=== PATIENT | female | born 1945 | race Caucasian/White ===

== ENCOUNTER 2018-01-05 18:36 | Observation (INO) | payer MEDICARE, SELFPAY ==
[2018-01-05 18:52] VITALS: BP 185/78; PULSE 86; RESP 16; TEMP 36.6; O2SAT 100; BMI 38.2
[2018-01-05 19:30] VITALS: BP 185/78; PULSE 86; RESP 16; TEMP 36.6; O2SAT 100; BMI 38.2
--- NOTE | 2018-01-05 19:37 | ED.ABDPAIN ---
HPI - Abdominal Pain General Chief Complaint: Abdominal Pain Stated Complaint: ABD PAIN Time Seen by Provider: 01/05/18 19:27 Source: patient and family ( and daughters) Mode of arrival: ambulatory Limitations: no limitations History of Present Illness HPI narrative: This is a 72-year-old female who comes to the emergency department with complaint of abdominal pain. Patient states she has had these symptoms on and off for 3 years. She gets pain on the right side of her abdomen. It is usually sort of in the middle but in the front. She states the 1st episode happened 3 years ago. She has had several episodes since. It is typically waxing and waning intensity and then resolved. She nor has normally had noticed it at night. She had a recurrence starting on Tuesday it continued to be intermittent and then starting on Tuesday became constant. It has been slowly increasing in intensity as well. She states movement or riding in a car and hitting a bump make it worse. She denies anything other than lying still. She has had back issues in the past and had injections with steroids but this feels different and is a different location. She describes that as her lower back. Patient has not had any fevers, nausea or vomiting, no diarrhea or constipation. He denies any urinary symptoms. Patient defers any pain medication. Related Data Home Medications Medication Instructions Recorded Confirmed No Known Home Medications 01/06/18 01/06/18 Allergies Allergy/AdvReac Type Severity Reaction Status Date / Time No Known Drug Allergies Allergy Verified 01/05/18 18:58 Review of Systems Review of Systems All systems reviewed & are unremarkable except as noted in HPI and below Constitutional Denies chills and Denies fever(s) Gastrointestinal Gastrointestinal: Reports abdominal pain, Denies change in bowel habits, Denies constipation, Denies diarrhea, Denies nausea and Denies vomiting Genitourinary Denies hematuria, Denies flank pain, Denies urinary incontinence, Denies urinary urgency and Denies other (flank pain) Musculoskeletal Denies back pain and Denies limited range of motion Integumentary/Breasts Denies rash [facility] Medical History Back pain (Acute) Social History household members: spouse Smoking Status: Never smoker alcohol intake: never substance use type: does not use Exam Narrative Exam Narrative: GENERAL: Alert and oriented x three, well-nourished, well-appearing female in mild distress. HEENT: Head normocephalic, atraumatic, EOMI, pupils reactive, face symmetric, moist mucous membranes NECK: Supple, full range of motion CARDIOVASCULAR: Regular rate and rhythm without murmurs, rubs or gallops. RESPIRATORY: Breath sounds equal bilaterally, no wheezes rales or rhonchi. ABDOMEN: Soft, moderate right lower quadrant tenderness. Patient has some right upper quadrant tenderness that is mild. Normoactive bowel sounds all 4 quadrants. No guarding or rebound, rigidity, no mass : No CVA tenderness EXTREMITIES: Normal range of motion, no clubbing or edema. Neurovascularly intact NEUROLOGICAL: Cranial nerves II through XII grossly intact. Moving all extremities SKIN: Warm, dry, no petechiae, no rashes or lesions. Initial Vital Signs Initial Vital Signs: Vital Signs Temperature 98 F 01/05/18 18:52 Pulse Rate 86 01/05/18 18:52 Respiratory Rate 16 01/05/18 18:52 Blood Pressure 185/78 H 01/05/18 18:52 Pulse Oximetry 100 01/05/18 18:52 Course Orders Ordered: ED Orders 01/05/18 19:30 Complete Blood Count AUTO DIFF Stat Comprehensive Metabolic Panel Stat Lipase Stat 01/05/18 19:48 CT abdomen pelvis w con Stat Ciprofloxacin (Cipro) 400 mg in 200 mls @ 200 mls/hr IV NOW BRI Last Infusion: 01/06/18 00:40 Dose: 0 mls/hr Admin: 01/05/18 23:24 Dose: 200 mls/hr Sodium Chloride (Normal Saline 0.9% Flush) 10 ml IV BID BRI Sodium Chloride (Normal Saline 0.9% Flush) 10 ml IV PRN PRN PRN Reason: Flush Discontinued Medications Sodium Chloride (Normal Saline 0.9%) 1,000 mls @ 1,000 mls/hr IV BOLUS ONE Stop: 01/05/18 20:47 Last Infusion: 01/05/18 21:19 Dose: 1,000 mls/hr Admin: 01/05/18 19:50 Dose: 1,000 mls/hr Metronidazole (Flagyl) 500 mg in 100 mls @ 100 mls/hr IV NOW ONE Stop: 01/05/18 22:49 Last Infusion: 01/05/18 22:19 Dose: 100 mls/hr Admin: 01/05/18 22:00 Dose: 100 mls/hr Reevaluation(s) Reevaluation #1: Patient is doing same. Discussed lab and imaging findings. Time: 21:40 Consultations Consultation #1: Dr. Ott I discussed patient's physical exam findings, HPI as well as imaging and lab work. She does have some straining although no other clear signs of appendicitis. She is tender in the right lower quadrant but not exquisitely so. Her symptoms have been waxing and waning for a long period of time. He recommends to place patient on IV antibiotics and evaluate after observation overnight. We did discuss that if patient does not wish to spend the night some he would recommend oral antibiotics such as Flagyl and fluoroquinolone, Cipro or Levaquin. Time: 21:41 Vital Signs - 8 hr 01/05/18 22:20 01/05/18 22:37 01/05/18 23:40 Temperature 97.1 F L 98.5 F Pulse Rate 71 76 Respiratory Rate 15 18 Blood Pressure 151/82 H 158/61 H Pulse Oximetry 96 158 H 95 01/06/18 02:30 Temperature 97.9 F Pulse Rate 78 Respiratory Rate 18 Blood Pressure 145/68 H Pulse Oximetry 94 MDM - Abdominal Pain Lab Data Attestation: I reviewed the patient's lab results. Result diagrams: 01/05/18 19:30 01/05/18 19:30 Lab Results 01/05/18 01/05/18 Range/Units 19:30 19:30 WBC 10.0 (4.5-11.0) X10^3/uL RBC 4.60 (4.0-5.2) X10^6/uL Hgb 14.5 (12.0-16.0) g/dL Hct 43.1 (36-46) % MCV 93.7 (80-100) fL MCH 31.5 (26-34) PG MCHC 33.6 (30-36) % RDW 12.8 (11.6-14.8) % Plt Count 292 (150-400) X10^3/uL Neut % (Auto) 59.7 (50-75) % Lymph % (Auto) 27.5 (25-40) % [place] % (Auto) 10.8 (3-14) % Eos % (Auto) 1.3 L (2-4) % Baso % (Auto) 0.7 (0-2) % Neut # (Auto) 6000 H (1428-1753) /uL Sodium 143 (137-145) mmol/L Potassium 4.5 (3.4-5.1) mmol/L Chloride 106 (98-107) mmol/L Carbon Dioxide 27 (22-32) mmol/L BUN 12 (7-17) mg/dL Creatinine 0.70 (0.52-1.04) mg/dL Estimated GFR > 60.0 (>60) mL/min BUN/Creatinine Ratio 17.1 (6-22) Glucose 119 H (80-110) mg/dL Calcium 8.7 (8.4-10.2) mg/dL Total Bilirubin 1.5 H (0.2-1.3) mg/dL AST 30 (14-36) IU/L ALT 28 (9-52) IU/L Alkaline Phosphatase 65 (38-126) U/L Total Protein 7.3 (6.3-8.2) g/dL Albumin 4.1 (3.5-5.0) g/dL Globulin 3.2 (1.7-4.1) g/dL Albumin/Globulin Ratio 1.3 (1.0-2.8) Lipase 60 (23-300) U/L Point of care testing: Urine Dip Bedside Urine Glucose Negative Bedside Urine Bilirubin - Negative Bedside Urine Ketone - Negative Urine Specific [place] 1.015 Bedside Urine Occult Blood - Negative Bedside Urine pH 6.0 Bedside Urine Protein - Negative Bedside Urine Urobilinogen - Negative Bedside Urine Nitrite - Negative Bedside Urine Leukocytes - Negative Esterase Imaging Data CT scan - abdomen: Radiologist's impression: Appendix not clearly visualized, there is stranding adjacent to the tip of the cecum and appendicitis cannot be excluded. Colonic diverticulosis without evidence of diverticulitis. 4.4 cm left adnexal cyst. Recommend nonemergent gynecology cool consult partial calcified 8 mm utilize nodule in hepatic steatosis Discharge Plan Departure Patient Disposition: Admitted as Observation Clinical Impression: Abdominal pain Discharge Date/Time: 01/05/18 22:20 Interventions: ED Discharge Assessment Last Done: 01/05/18 22:20 Admit Date/Time: 01/05/18 22:11 Admit Provider: Farhad Ott
--- NOTE | 2018-01-05 19:48 | DI.CT.S_ITS ---
PROCEDURE: CT ABDOMEN PELVIS W CON INDICATIONS: Right lower quadrant pain, on/off for long time, worse and constant x 5 days. TECHNIQUE: After the administration of intravenous contrast, 5 mm thick sections acquired from the diaphragm to the symphysis. 5 mm coronal and sagittal reformats were acquired. For radiation dose reduction, the following was used: automated exposure control, adjustment of mA and/or kV according to patient size. COMPARISON: None. FINDINGS: Image quality: Excellent. ABDOMEN: Lung bases: Atelectasis noted in the dependent portion the lung bases. 8mm partially calcified, partially visualized nodule noted in the mesial aspect of the right lung base. Heart size is normal. Solid organs: Liver is normal in size and enhancement. Mild, diffuse fatty infiltration of the liver. Gallbladder is within normal limits. Biliary system is non dilated. Pancreas enhances normally. Spleen is normal in size and enhancement. Punctate calcifications in the spleen compatible sequela prior granulomatous disease. No adrenal nodules. Kidneys demonstrate normal size and enhancement, without hydronephrosis. 2.4 cm right renal cyst. Peritoneum and bowel: Small hiatal hernia. Bowel loops demonstrate normal wall thickness and caliber. Multiple diverticuli noted in the colon without evidence diverticulitis. No free fluid or air. The appendix is not definitely visualized. Mild strandy noted adjacent to the tip of the cecum. Nodes and vessels: No retroperitoneal or mesenteric adenopathy by size criteria. Aorta and inferior vena cava are normal in size. Miscellaneous: Small fat containing umbilical hernia. PELVIS: Genitourinary: Bladder wall thickness is normal. 4.4 cm in maximum diameter left adnexal cyst is noted. Miscellaneous: No inguinal hernias or adenopathy. Bones: No suspicious bony lesions. No vertebral body compression fractures. Spine degenerative disease and facet arthropathy noted. IMPRESSION: 1. Appendix not definitely visualized. There is stranding adjacent to the tip of the cecum and appendicitis cannot be excluded. 2. Colonic diverticulosis without evidence of diverticulitis. 3. 4.4 cm left adnexal cyst. Recommend nonemergent gynecology consultation. 4. Partially calcified, 8mm, partially visualized nodule in the right lower lobe. Recommend dedicated nonemergent CT scan of the chest for definitive characterization. 5. Hepatic steatosis. Dictated by: Jolene Hernandez MD, PhD on 01/05/2018 at 20:53 Approved by: Jolene Hernandez MD, PhD on 01/05/2018 at 21:01
[2018-01-05] MEDS: SODIUM CHLORIDE 0.9% 1,000 ML 1000 ML IV (19:50)
[2018-01-05 19:54] LABS: Add Manual Diff / Slide Review NO; Basophils Percent Auto 0.7 % (0-2); Eosinophils Percent Auto 1.3 % (2-4); Hematocrit 43.1 % (36-46); Hemoglobin 14.5 g/dL (12.0-16.0); Lymphocytes Percent Auto 27.5 % (25-40); Mean Corpuscular HGB Conc 33.6 % (30-36); Mean Corpuscular Hemoglobin 31.5 PG (26-34); Mean Corpuscular Volume 93.7 fL (80-100); Monocytes Percent Auto 10.8 % (3-14); Neutrophils Absolute Auto 6000 /uL (3000-5900); Neutrophils Percent Auto 59.7 % (50-75); Platelet Count 292 X10^3/uL (150-400); Red Cell Distribution Width 12.8 % (11.6-14.8)
[2018-01-05 19:59] LABS: Alanine Aminotransferase 28 IU/L (9-52); Albumin 4.1 g/dL (3.5-5.0); Albumin Globulin Ratio 1.3 (1.0-2.8); Alkaline Phosphatase 65 U/L (38-126); Aspartate Aminotransferase 30 IU/L (14-36); BUN Creatinine Ratio 17.1 (6-22); Bilirubin Total 1.5 mg/dL (0.2-1.3); Blood Urea Nitrogen 12 mg/dL (7-17); Calcium 8.7 mg/dL (8.4-10.2); Carbon Dioxide 27 mmol/L (22-32); Chloride 106 mmol/L (98-107); Estimated Glomerular Filt Rate > 60.0 mL/min (>60); Globulin 3.2 g/dL (1.7-4.1); Glucose 119 mg/dL (80-110); Lipase 60 U/L (23-300); Sodium 143 mmol/L (137-145); Total Protein 7.3 g/dL (6.3-8.2)
[2018-01-05 20:00] LABS: HEMOLYSIS 84 (0-50); Potassium 4.5 mmol/L (3.4-5.1)
[2018-01-05] MEDS: metroNIDAZOLE 500 MG/100 ML PIGGYBACK 100 MG IV (22:00)
[2018-01-05 22:16] VITALS: BMI 38.2
[2018-01-05 22:20] VITALS: BP 151/82; PULSE 71; RESP 15; TEMP 36.2; O2SAT 96
[2018-01-05 22:37] VITALS: BP 158/61; PULSE 76; RESP 18; TEMP 36.9; O2SAT 158
[2018-01-05] MEDS: CIPROFLOXACIN 400 MG/200 ML PIGGYBACK 200 MG IV (23:24)
[2018-01-05 23:40] VITALS: O2SAT 95
--- NOTE | 2018-01-06 00:54 | PC.NURSE ---
Addendum entered by Margareth Perales R.N. 01/06/18 06:06: Slept most of shift. Up to bathroom x 1 to void and urine sent to lab as per ER MD order. Still having tenderness but declines need for pain medication. Original Note: Patient is alert and oriented. Breath sounds CTA with RA sat of 95%. HRR. Denies nausea. BT present but denies flatus or BM yesterday/today. Abdomen is soft but tender in right quads with severity of 4/10 but states it is tolerable. Independent with bed mobility. Fall risk score is low; patient reminded to call for assistance to bathroom due to complaint of generalized weakness. On contact isolation as patient states she has had thread worms x 6 months.
[2018-01-06 02:30] VITALS: BP 145/68; PULSE 78; RESP 18; TEMP 36.6; O2SAT 94
[2018-01-06 08:50] VITALS: BP 152/72; PULSE 70; RESP 20; TEMP 36.8; O2SAT 93
[2018-01-06] MEDS: DEXTROSE 5%-0.45% NS 1,000 ML 150 ML IV (09:16)
[2018-01-06] MEDS: BISACODYL 10 MG SUPP PR (09:16)
[2018-01-06] MEDS: SODIUM CHLORIDE 0.9% FLUSH 10 ML IV (10:07)
--- NOTE | 2018-01-06 10:35 | PC.NURSE ---
Marianela states she has had intestine worms for around 6 months duration. She can feel them moving around her rectum especially at night. She states they are white and have a thread-like appearance. She describes both a male and female worm anatomy. Marianela was able to have a small formed BM after suppository. Stool samples obtained for O and P, and, separately, per Dr. Ott, for pathology identification, sent to lab. This nurse could visually see multiple objects in stool that appeared about the thickness of a pine needle, and about 1 long. Marianela is tolerating clear liquid diet. No nausea. She has abdominal pain which waxes and wanes, mostly on right side, and mostly when she moves about.
[2018-01-06 13:05] VITALS: BP 144/64; PULSE 66; RESP 20; TEMP 36.9; O2SAT 95
--- NOTE | 2018-01-06 13:09 | CM.DANOTE ---
Addendum entered by Ying Berry LPN 01/06/18 13:17: Pt is a 72 year old female who admitted last night to care of the general surgical team. Dr. Ott has seen her today/his note is not yet available. PCP: Dr. Proctor Payer: Medicare and [employer] Full dx and POC are in process. Pt is on contact precautions as she reports interstinal work infestation x 6 months. Pt appears uncomfortable and anxious, says she does not know yet what the doctor is planning. P: DCP team to follow prn as POC unfolds to assist with any d/c needs that may arise. Original Note: Discharge Planning/Care Management DCP: assessment: Case received, EMR reviewed and met with pt. Introduced self and role. CM Discharge Assessment Start: 01/06/18 13:07 Freq: Status: Active Protocol: Document 01/06/18 13:08 ITV (Rec: 01/06/18 13:09 [email or web address] [email or web address]) Discharge Planning Assessment Advance Directives? Yes History Provided By Patient Prior Living Arrangements House Household Members spouse Document 01/06/18 13:08 ITV (Rec: 01/06/18 13:09 [email or web address] [email or web address]) Discharge Planning Assessment History Provided By Patient Medical Record Prior Living Arrangements House Comment lives on [facility] Household Members spouse Independent with ADL's Yes Is patient alert and oriented? Yes Whiteboard Updated in Patient Room with Yes name and ext. # of [employer] Review Status In Process Next Review Type Continued Stay Review
[2018-01-06 15:05] LABS: Add Manual Diff / Slide Review NO; Basophils Percent Auto 0.4 % (0-2); Eosinophils Percent Auto 1.2 % (2-4); Hematocrit 40.6 % (36-46); Hemoglobin 13.7 g/dL (12.0-16.0); Lymphocytes Percent Auto 22.9 % (25-40); Mean Corpuscular HGB Conc 33.8 % (30-36); Mean Corpuscular Hemoglobin 31.8 PG (26-34); Mean Corpuscular Volume 93.9 fL (80-100); Monocytes Percent Auto 11.9 % (3-14); Neutrophils Absolute Auto 4900 /uL (3000-5900); Neutrophils Percent Auto 63.6 % (50-75); Platelet Count 251 X10^3/uL (150-400); Red Blood Cell Count 4.33 X10^6/uL (4.0-5.2); Red Cell Distribution Width 12.5 % (11.6-14.8); White Blood Cell Count 7.7 X10^3/uL (4.5-11.0)
--- NOTE | 2018-01-06 16:37 | PM.HP.1 ---
History of Present Illness Date Patient Seen: 01/06/18 Time Patient Seen: 08:31 Chief complaint: ABD PAIN Narrative: The patient is a woman with a 4 5 day history of right lower quadrant pain. Pain occurred when she changed positions. When she was laying still or standing it was not painful. She has had no nausea vomiting diarrhea or constipation. She has had intermittent pain similar to this over the last 3 years. This is the 1st time it did not go away. Of note, she failed to inform the emergency room doctor that she has been seeing worms in her stool for at least the past 8 months. For reasons that are unclear she really has not sought care nor received any evaluation or treatment. She feels like there is activity around her anus at night, as though something is crawling around her anus. She has had no fever chills. She also has a history of low back problems. She has had a cortisone injection in the past. Patient History Medical History Back pain (Acute) Family & Social History Family History: Reviewed 01/06/18 by Farhad Ott MD Social History: household members spouse Prior Living Arrangements House Safety & Behavioral: Feels Safe in Current Yes Environment Been Physically Hurt or No Threatened By a Person Suicidal Ideation Description None Suicide Plan Description No Plan Tobacco & Substance use: Smoking Status Never smoker alcohol intake never alcohol intake frequency 0-2 drinks per day Substance Use Type does not use Meds Home Medications Medication Instructions Recorded Confirmed Type albendazole 400 mg PO DAILY #6 tab 01/06/18 Rx Allergies Allergy/AdvReac Type Severity Reaction Status Date / Time No Known Drug Allergies Allergy Verified 01/05/18 18:58 Review of Systems Review of Systems Patient denies fever chills night sweats. No cough cold or asthma. No double vision pain arise. No tooth aches trouble swallowing. No problems with her heart heart attacks heart murmurs. No black or bloody bowel movements. She has never had a colonoscopy. No seizures or blackouts. No blood in her urine kidney stones or dysuria. No problems with her thyroid pancreas she is aware of. She does have some joint pain in her knees and ankles but has never had any operations. Exam Vital Signs (past 8 hours): - 01/06/18 08:50 01/06/18 13:05 Temperature 98.3 F 98.4 F Pulse Rate 70 66 Respiratory Rate 20 20 Blood Pressure 152/72 H 144/64 H Pulse Oximetry 93 95 Oxygen Delivery Method Room Air Narrative Exam Narrative: Obese woman in no apparent distress. She smiles in length comfortably. Her eyes are nonicteric. Pupils equal round reactive to light. Conjunctivae are pink. Ears without lesion. Oral mucosa is pink and moist. No open lesions appreciated. No splits ellipse. There are no nodes in the neck or supraclavicular areas. Trachea is midline mobile. Thyroid is not enlarged. Lungs are clear to auscultation without rales or rhonchi. Heart regular rate and rhythm without murmur gallop. No bruit in the neck. Her abdomen is protuberant soft. There is slight tenderness in the right lower quadrant but it is not reproducible. There is no guarding and no rebound. There is no enlargement of her liver spleen. I see no ventral hernias. Her extremities are without cyanosis clubbing or edema. She has decreased hearing in her lower extremities but she shaves her legs. 2+ dorsalis pedis pulses are noted. She is alert and oriented x3. Speech rate and content are appropriate. Affect is appropriate. Objective Imaging CT scan - abdomen: My impression: Reviewed report. There is some very slight stranding near the end of the cecum. I do not see an appendix. No thickening of the bowel in that area. Small bowel was normal. INC any other worrisome findings. The report does mention a possible lung lesion. Labs Result Diagrams: 01/06/18 14:58 01/05/18 19:30 Labs: Laboratory Results - last 24 hr 01/05/18 01/05/18 01/06/18 19:30 19:30 14:58 WBC 10.0 7.7 RBC 4.60 4.33 Hgb 14.5 13.7 Hct 43.1 40.6 MCV 93.7 93.9 MCH 31.5 31.8 MCHC 33.6 33.8 RDW 12.8 12.5 Plt Count 292 251 Neut % (Auto) 59.7 63.6 Lymph % (Auto) 27.5 22.9 L [place] % (Auto) 10.8 11.9 Eos % (Auto) 1.3 L 1.2 L Baso % (Auto) 0.7 0.4 Neut # (Auto) 6000 H 4900 Sodium 143 Potassium 4.5 Chloride 106 Carbon Dioxide 27 BUN 12 Creatinine 0.70 Estimated GFR > 60.0 BUN/Creatinine Ratio 17.1 Glucose 119 H Calcium 8.7 Total Bilirubin 1.5 H AST 30 ALT 28 Alkaline Phosphatase 65 Total Protein 7.3 Albumin 4.1 Globulin 3.2 Albumin/Globulin Ratio 1.3 Lipase 60 Assessment & Plan Plan: Assessment/Plan Narrative: Patient with right lower quadrant pain that is completely atypical of acute appendicitis. CT scan suggests that there may be some inflammation in the pericecal fat. However at 4 days into acute appendicitis I would expect to see more than the minimal amount of stranding IC. In addition she has had no change in her bowel function, has no fever, and does not have an elevated white count or left shift. All of those things mitigate away from appendicitis. In addition her exam is relatively benign. I am very concerned with a history of seeing worms. This certainly can cause abdominal symptoms. She is not really having diarrhea but a stool sample was reported to have small white filaments and at suggestive of worms. Sample was submitted to the [facility]. I am not sure that we need to keep the patient hospitalized any further. Her over site of reporting to the emergency room physician is how she was admitted for observation when she might have been sent out with a prescription. In any event I do not believe she has a surgical belly. I have sent a prescription for albendazole to the local [facility] pharmacy at her request. We will treat empirically and await the results from the [facility]. She should follow-up with her family doctor on or CT us should her symptoms persist or her worms persist. She may also need to have her family treated. I spoke to her at length about good hygiene to avoid cross family transmission. Quality VTE Deep Vein Thrombosis/Pulmonary Embolism Present on Admission: No
--- NOTE | 2018-01-06 18:01 | PM.DS.1 ---
History of Present Illness Chief complaint: ABD PAIN Narrative: The patient is a woman with a 4 5 day history of right lower quadrant pain. Pain occurred when she changed positions. When she was laying still or standing it was not painful. She has had no nausea vomiting diarrhea or constipation. She has had intermittent pain similar to this over the last 3 years. This is the 1st time it did not go away. Of note, she failed to inform the emergency room doctor that she has been seeing worms in her stool for at least the past 8 months. For reasons that are unclear she really has not sought care nor received any evaluation or treatment. She feels like there is activity around her anus at night, as though something is crawling around her anus. She has had no fever chills. She also has a history of low back problems. She has had a cortisone injection in the past. Discharge Providers Date of admission: 01/05/18 22:11 Primary care physician: Parker Proctor MD Discharge provider: Farhad Ott MD Discharge Date: 01/06/18 Summary Discharge Diagnosis: Right lower quadrant pain cause unclear acute with history of chronic pain. 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 Per patient Obesity Hospital Course: Patient was observed and her weight count repeated. It was never elevated. She never had a fever. Tenderness was minimal despite a 4 day history. She was not felt to require any surgical intervention. There was concerned that her symptoms might be related to her warm infestation. She will be treated with albendazole 400 mg daily for 3 days. This covers many of the worm parasites. Will await the state findings at the of will consider treatment of the entire family. Status at Discharge Cognitive/behavioral status at discharge: Pre-admission Functional status at discharge: independent ambulation Overall status at discharge: patient is back to baseline Time Spent with Patient Less than 30 minutes Exam Vital Signs (past 8 hours): - 01/06/18 13:05 Temperature 98.4 F Pulse Rate 66 Respiratory Rate 20 Blood Pressure 144/64 H Pulse Oximetry 95 Oxygen Delivery Method Room Air Objective Labs Result Diagrams: 01/06/18 14:58 01/05/18 19:30 Labs: Laboratory Results - last 24 hr 01/05/18 01/05/18 01/06/18 19:30 19:30 14:58 WBC 10.0 7.7 RBC 4.60 4.33 Hgb 14.5 13.7 Hct 43.1 40.6 MCV 93.7 93.9 MCH 31.5 31.8 MCHC 33.6 33.8 RDW 12.8 12.5 Plt Count 292 251 Neut % (Auto) 59.7 63.6 Lymph % (Auto) 27.5 22.9 L [place] % (Auto) 10.8 11.9 Eos % (Auto) 1.3 L 1.2 L Baso % (Auto) 0.7 0.4 Neut # (Auto) 6000 H 4900 Sodium 143 Potassium 4.5 Chloride 106 Carbon Dioxide 27 BUN 12 Creatinine 0.70 Estimated GFR > 60.0 BUN/Creatinine Ratio 17.1 Glucose 119 H Calcium 8.7 Total Bilirubin 1.5 H AST 30 ALT 28 Alkaline Phosphatase 65 Total Protein 7.3 Albumin 4.1 Globulin 3.2 Albumin/Globulin Ratio 1.3 Lipase 60 Discharge Plan Discharge Plan Patient Disposition: Home Discharge comment: I am not certain the cause of her pain but I do not believe it is surgical. We are going to treat you empirically for parasitic worm infection. We will await the state lab results. If they are positive your family may need to be treated as well. Careful hand hygiene is critical to preventing transmission to other family members anti herself. Cook your food well. Make sure you carefully wash any raw vegetables and peel them carefully. Discharge Med Rec/Prescriptions Prescriptions: New albendazole 200 mg tablet 400 mg PO DAILY Qty: 6 RF: 0 Follow up/Referrals: Parker Proctor MD [Primary Care Provider] - Provider Discharge Instructions Diet: Diet as Tolerated Activity: As tolerated Other treatments: The medication may make it a little nauseated. Skin/Wound/Dressing Care Report to your healthcare provider any signs of infection, such as:: chills, fever, night sweats and increased pain Visit Report/Discharge Packet Visit Report Forms: Stroke Signs & Symptoms Discharge Data Primary Care Provider: Parker Proctor Attending Provider: Farhad Ott Admit Date/Time: 01/05/18 22:11 Quality VTE Deep Vein Thrombosis/Pulmonary Embolism Present on Admission: No
--- NOTE | 2018-01-06 18:31 | PC.NURSE ---
Patient is A&O x3, patient is very tearful and remorseful regarding her families concerns of poss. spreading of current DX. patient was d/c'd and teaching was done w/ family and pt by float nurse. Call was placed to this nurse by daughter Tamara after d/c regarding medication that was perscribed by provider. Tamara stated to nurse over phone that the RX written for patient was going to cost family $1600 out of pocket. This nurse suggested to family to call around to other pharm. and do tolbert checks on poss cost of med. This nurse did research on other possible medications that is affective for current DX. Suggestion of other medication was given and environmental economist phone number was given to family to call environmental economist doctor for suggestions of other medication treatment if not successful in calling for better pricing for current tx. Family is aware that most pharmacy are closed at this time in the evening and will have to do some foot work in calling around tomorrow. Family was very gracious for information given by this nurse.
== END 2018-01-06 17:30 | disposition home or self-care (01) ==
LOC: ED 21:50 → AC 22:12
PROVIDERS: Admitting Provider Specialist; Emergency Provider Emergency Medicine; PCP Family Medicine; Visit Provider Specialist
DX: R10.9 Unspecified abdominal pain (principal)
CPT/HCPCS: 36415; 36591; 74177; 80053; 81003; 83690; 85025; 87169; 87177; 96361; 96365; 99283; 99285; G0378; J0744; Q9967

== ENCOUNTER → 2022-06-08 16:33 | Outpatient (CLI) | payer MEDICARE, SELFPAY ==
[2022-03-02 10:35] VITALS: BMI 38.2
--- NOTE | 2022-06-08 16:35 | DI.MRI.S_ITS ---
PROCEDURE: MR LUMBAR SPINE WO CON INDICATIONS: Chronic progressive axial low back pain TECHNIQUE: Noncontrast sagittal T1 spin echo and T2 fast echo, sagittal STIR, and T2 fast spin echo through the lumbar spine. In cases with scoliosis, additional coronal T2 fast spin echo may be performed. COMPARISON: [facility], , L-SPINE WITHOUT CONTRAST, 03/10/2016, 12:58. FINDINGS: Image quality: Excellent. Alignment and Curvature: There is normal bony alignment. Bone Marrow: Marrow is of normal overall signal. No acute vertebral body compression fractures. Spinal Cord: Conus medullaris terminates at the L1-2 level. Visualized cord demonstrates normal signal and size. Paraspinous Soft Tissues: No paravertebral masses. T12-L1: Normal appearance. L1-L2: Normal appearance. L2-L3: Broad-based eccentric to the right disc bulge with mild right greater than left bilateral facet arthropathy results in mild right neural foraminal stenosis. There is mild spinal canal stenosis as before. No left-sided neural foraminal stenosis. L3-L4: Minimal symmetric disc bulge. Moderate bilateral facet arthropathy and ligamentum flavum hypertrophy. Findings result in mild spinal canal stenosis. There is mild right neural foraminal stenosis. No significant left-sided neural foraminal stenosis. L4-L5: There is loss of disc signal intensity. There is disc height loss. Degenerative endplate changes. Moderate bilateral facet arthropathy. Ligamentum flavum hypertrophy. Broad-based disc bulge with small posterior central disc protrusion. Findings result in moderate spinal canal stenosis and left greater than right moderate bilateral neural foraminal stenosis. L5-S1: Mild symmetric disc bulge. Mild bilateral facet arthropathy. No significant spinal canal stenosis. Stable appearance of mild-moderate bilateral neural foraminal stenosis. IMPRESSION: Multilevel, multifactorial lumbar spondylosis as detailed above by vertebral body level. Overall, there has been interval progression of degenerative changes since the prior study dated 2015. Findings are again most pronounced at L4-5 and L5-S1. Most severe level is at L4-5 as before. Dictated by: Antonio Singh M.D. on 06/09/2022 at 11:08 Approved by: Antonio Singh M.D. on 06/09/2022 at 11:20
== END ==
PROVIDERS: PCP Family Medicine; Referring Provider Physical Medicine & Rehabilitation; Visit Provider Physical Medicine & Rehabilitation
DX: M47.816 Spondylosis without myelopathy or radiculopathy, lumbar region (principal); M47.817 Spondylosis without myelopathy or radiculopathy, lumbosacral region; M48.062 Spinal stenosis, lumbar region with neurogenic claudication
CPT/HCPCS: 72148

== ENCOUNTER 2022-07-13 14:11 | Outpatient (CLI) | payer MEDICARE, SELFPAY ==
[2022-03-02 10:35] VITALS: BMI 38.2
[2022-07-13] VITALS (7 sets, daily range): BP systolic 128–153; BP diastolic 58–73; PULSE 63–92; RESP 17–22; TEMP 36.6; O2SAT 96–99
--- NOTE | 2022-07-13 14:13 | DI.RAD.S_ITS ---
PROCEDURE: PAIN L INTERLAMINAR/CAUDAL INJ INDICATIONS: SPONDYLOSIS COMPARISON: [facility], MR, MR LUMBAR SPINE WO CON, 06/08/2022, 16:52. [facility] ([facility]), CR, XR LUMBAR SPINE 2-3V, 12/30/2021, 14:12. FINDINGS: Fluoroscopic spot filming was performed to verify placement of a spinal needle at the L4-L5 level, as labeled on the films. Appropriate location of the needle tip was confirmed by injection of iodinated contrast. IMPRESSION: Intraprocedural examination within normal limits. Dictated by: Khanh Swain M.D. on 07/13/2022 at 18:04 Approved by: Khanh Swain M.D. on 07/13/2022 at 18:05
[2022-07-13] MEDS: MIDAZOLAM 2 MG/2 ML VIAL IV (15:36)
[2022-07-13] MEDS: BETAMETHASONE 30 MG/5 ML MDV 6 MG INJ (15:45)
[2022-07-13] MEDS: DEXAMETHASONE 10 MG/ML VIAL 20 MG INJ (15:46)
[2022-07-13] MEDS: IOPAMIDOL 15 ML VIAL 3 ML INJ (15:46)
[2022-07-13] MEDS: BUPIVACAINE 0.25% (PF) VIAL 2 ML INJ (15:48)
--- NOTE | 2022-07-13 15:56 | P.PCN_ITS ---
Date/Time/Diagnoses Date of procedure: 07/13/22 Time of procedure: 15:57 Pre-procedure diagnosis: 1. HNP WITH RADICULAR FEATURES, 2. MULTILEVEL CENTRAL STENOSIS, Post-procedure diagnosis: same Procedure Notes Procedure: 1. FLUOROSCOPICALLY GUIDED CONTRAST CONTROLLED INTERLAMINAR EPIDURAL STEROID INJECTION -L4/5 Indications: Stephanie harris referred by Dr. Proctor for treatment of Bilateral Foraminal Stenosis R>L LE symptoms. Physician: Mikael Rosales Total Fluoroscopy time (seconds): 8 Total sedation minutes: 16 Complications: none Procedure in detail & Post-procedure care: FINDINGS Multilevel Central Spinal Stenosis with Nerve Root Compression DESCRIPTION OF PROCEDURE Fluoroscopically guided, contrast-controlled L4/5 translaminar epidural steroid injection. Following review of allergy and review of potential side effects and complications, including, but not necessarily limited to, infection, allergic reaction, local tissue breakdown, temporary as well as permanent nerve injury, paralysis, stroke and possible , the patient indicated that the patient understood and agreed to proceed. An informed consent document was signed by the patient, witnessed by a nurse, and placed in the patient's chart. Additionally, other treatment options including modalities, medications, and physical therapy were reviewed with the patient. After review of previous anaesthesic history and IV conscious sedation the patient was deemed safe to proceed with today?s procedure with IV conscious sedation as ASA class II designation. Safety time-out was performed to confirm patient ID, procedure to be performed and site of procedure. IV sedation was accomplished with a combination of 2mg of Versed was administered by the RN after DO order, titrated to patient comfort during the course of the procedure while the patient remained responsive to all verbal commands In the prone position, following sterile prep and drape of the lumbar region, the L4/5 translaminar space was identified fluoroscopically. The skin was anesthetized via a 25-gauge, 1.5inch needle with 1% lidocaine solution. At this point, a 22-gauge short bevel spinal needle was atraumatically introduced and a dvanced under fluoroscopic guidance into the region of the L4/5 translaminar space. Depth was confirmed on lateral view. Radiological data, including multiple fluoroscopic views of the lumbar spine, reveal a spinal needle at the L4/5 translaminar space. Lateral views then show placement of the needle in the epidural space. Subsequent views show contrast material flowing superiorly and inferiorly in the epidural space. No vascular or intrathecal uptake is observed. At this point, using loss of resistance technique with saline and air, the epidural space was entered. This was confirmed following negative aspiration with injection of approximately 1.5cc of Isovue 200, showing excellent epidural flow without vascular or intrathecal uptake. At this point, 1cc of 1% lidocaine solution combined with 3cc or 20mg of dexamethasone and 6mg betamethasone was injected without incident. The patient tolerated the procedure well without signs or symptoms of complications prior to transfer to the recovery area continued monitoring without incident. The patient was then transferred to the recovery area where they were observed for an appropriate period of time after the injection. The patient reported a VAS score of 6 prior to the procedure and a post- procedure VAS of 0. POST OP INSTRUCTIONS The patient was provided a Pain Log to continue to record their response to the target-specific procedure prior to follow-up visit with their referring physician. Additionally, specific post-injection care instructions and a contact number to our office were provided if concerns arise regarding possible complications associated with the procedure are suspected.
== END 2022-07-13 16:10 | disposition home or self-care (01) ==
PROVIDERS: PCP Family Medicine; Referring Provider Physical Medicine & Rehabilitation; Visit Provider Physical Medicine & Rehabilitation
DX: M51.16 Intervertebral disc disorders with radiculopathy, lumbar region; M48.061 Spinal stenosis, lumbar region without neurogenic claudication
CPT/HCPCS: 62323; 99152; J0702; J1100; J2250; J3490